=== PATIENT | female | born 1940 | race American Indian/Alaskan Native ===

== ENCOUNTER 2018-11-21 19:56 | Emergency (ER) | payer MEDICARE ==
--- NOTE | 2018-11-22 00:50 | Emergency Department Report ---
ED ENT HPI - General Chief complaint: Dental/Oral Stated complaint: MOUTH/EAR PAIN Time Seen by Provider: 11/22/18 00:35 Source: patient Mode of arrival: Ambulatory Limitations: No Limitations - History of Present Illness Initial comments: Pt presents to the ED with c/o left lower dental pain that began 3 days ago. She states she has not seen a dentist in about 12 years. The patient states she has several cavities and teeth extractions. She denies any fever. She does have pain with chewing food. The patient has a hx of HTN and states she did not take her losartan tonight. - Related Data Previous Rx's Medication Instructions Recorded Last Taken Type Acetaminophen/Codeine [Tylenol 1 tab PO BID PRN #10 tablet 11/22/18 Unknown Rx /Codeine # 3 tab] metroNIDAZOLE [Flagyl] 500 mg PO BID 7 Days #14 tab 11/22/18 Unknown Rx Allergies Allergy/AdvReac Type Severity Reaction Status Date / Time amoxicillin Allergy Rash Verified 11/21/18 20:02 Sulfa (Sulfonamide Allergy Hives Verified 11/03/15 15:32 Antibiotics) ED Dental HPI - General Chief complaint: Dental/Oral Stated complaint: MOUTH/EAR PAIN Time Seen by Provider: 11/22/18 00:35 Source: patient Mode of arrival: Ambulatory Limitations: No Limitations - Related Data Previous Rx's Medication Instructions Recorded Last Taken Type Acetaminophen/Codeine [Tylenol 1 tab PO BID PRN #10 tablet 11/22/18 Unknown Rx /Codeine # 3 tab] metroNIDAZOLE [Flagyl] 500 mg PO BID 7 Days #14 tab 11/22/18 Unknown Rx Allergies Allergy/AdvReac Type Severity Reaction Status Date / Time amoxicillin Allergy Rash Verified 11/21/18 20:02 Sulfa (Sulfonamide Allergy Hives Verified 11/03/15 15:32 Antibiotics) ED Review of Systems ROS: Stated complaint: MOUTH/EAR PAIN Other details as noted in HPI Comment: All other systems reviewed and negative ED Past Medical Hx - Past Medical History Previous Medical History?: Yes Hx Hypertension: Yes - Surgical History Past Surgical History?: Yes Hx Cholecystectomy: Yes Additional Surgical History: hysterectomy - Social History Smoking Status: Never Smoker Substance Use Type: None - Medications Home Medications: Home Medications Medication Instructions Recorded Confirmed Last Taken Type Acetaminophen/Codeine [Tylenol 1 tab PO BID PRN #10 tablet 11/22/18 Unknown Rx /Codeine # 3 tab] metroNIDAZOLE [Flagyl] 500 mg PO BID 7 Days #14 tab 11/22/18 Unknown Rx ED Physical Exam - General Limitations: No Limitations General appearance: alert, in no apparent distress - Head Head exam: Present: atraumatic, normocephalic - Eye Eye exam: Present: normal appearance - ENT ENT exam: Present: mucous membranes moist, other (several dental caries throughout, a few teeth missing, no obvious abscess, very small amount of left sided facial swelling, face is not warm to touch) - Respiratory Respiratory exam: Present: normal lung sounds bilaterally. Absent: respiratory distress, wheezes, rales, rhonchi, stridor, chest wall tenderness, accessory muscle use, decreased breath sounds, prolonged expiratory - Cardiovascular Cardiovascular Exam: Present: regular rate, normal rhythm, systolic murmur. Absent: rubs, gallop (3/6 systolic murmur) ED Course Vital Signs 11/21/18 11/22/18 20:31 01:12 Temperature 98.2 F Pulse Rate 83 79 Respiratory 16 17 Rate Blood Pressure 183/79 179/93 [Right] O2 Sat by Pulse 96 96 Oximetry ED Medical Decision Making - Lab Data Vital Signs 11/21/18 11/22/18 20:31 01:12 Temperature 98.2 F Pulse Rate 83 79 Respiratory 16 17 Rate Blood Pressure 183/79 179/93 [Right] O2 Sat by Pulse 96 96 Oximetry - Medical Decision Making Pt is a 78 yo female who presents to the ED with c/o left lower dental pain that began 3 days ago. No obvious abscess on examination. very small amount of left sided facial swelling. pt has not seen a dentist in 12 years. she has several dental caries and teeth missing. Will place pt on antibiotics and give her something for the pain. Advised to see a dentist TOSHIA, pt given list of resources/dental clincs. Also advised pt to take her losartan due to elevated BP, also advised pt to see her PCP in 2 days for BP recheck and further management. BP slightly improved on recheck in the ED. Return to the ED for any new or worsening symptoms. - Differential Diagnosis Dental caries, Dental infection, Dental abscess Critical care attestation.: If time is entered above; I have spent that time in minutes in the direct care of this critically ill patient, excluding procedure time. ED Disposition Clinical Impression: Dental caries, Pain due to dental caries Disposition: DC-01 TO HOME OR SELFCARE Is pt being admited?: No Does the pt Need Aspirin: No Condition: Stable Instructions: Dental Caries (ED) Additional Instructions: Follow up with a dentist TOSHIA. Take all medication as prescribed. Follow up with your primary care doctor in the next 2-3 days for a blood pressure recheck. Return to the emergency room for any new or worsening symptoms. Prescriptions: metroNIDAZOLE [Flagyl] 500 mg PO BID 7 Days #14 tab Acetaminophen/Codeine [Tylenol /Codeine # 3 tab] 1 tab PO BID PRN #10 tablet PRN Reason: Pain, Moderate (4-6) Referrals: JAYDEN [facility]LY [facility] MD MICHELLE [Referring] - 2-3 Days Time of Disposition: 00:51 Print Language: FRISIAN
[2018-11-22 04:19] VITALS: BP 179/93
== END 2018-11-22 01:12 | disposition home or self-care (01) ==
LOC: ED 19:56
DX: K02.9 Dental caries, unspecified (principal); I10 Essential (primary) hypertension; Z90.49 Acquired absence of other specified parts of digestive tract; Z88.1 Allergy status to other antibiotic agents; Z88.2 Allergy status to sulfonamides
CPT/HCPCS: 99282

== ENCOUNTER 2019-08-10 01:07 | Emergency (ER) | payer MEDICARE ==
[2019-08-10 01:11] VITALS: BP 170/82
[2019-08-10] MEDS ORDERED: diphenhydrAMINE 25 MG CAP PO ONE ×2 (01:23→01:32)
[2019-08-10] MEDS ORDERED: dexAMETHasone 20 MG/5 ML VIAL ONE (01:24)
[2019-08-10] MEDS ORDERED: FAMOTIDINE 20 MG TAB ONE (01:24)
[2019-08-10] MEDS ORDERED: FAMOTIDINE 20 MG TAB PO ONE (01:32)
[2019-08-10] MEDS ORDERED: dexAMETHasone 20 MG/5 ML VIAL IM ONE (01:33)
--- NOTE | 2019-08-10 02:12 | Emergency Department Report ---
HPI - General Chief Complaint: Skin Rash Time Seen by Provider: 08/10/19 01:55 - HPI HPI: Room 25 The patient is a 78-year-old female presenting with a chief complaint of rash. Patient states 3 days ago she developed a diffuse rash has been pruritic. Patient states the rashes on both arms bilateral lower extremities and between her breasts. Patient states she does not recall taking any new medications, detergents or foods. No one else in the home has the same symptoms. Location: [See above] Duration: [See above] Quality: [See above] Severity: [See above] Timing: [See above] Context: [See above] Modifying factors: [See above] Associated signs and symptoms: [see above] ED Past Medical Hx - Past Medical History Previous Medical History?: Yes Hx Hypertension: Yes - Surgical History Past Surgical History?: Yes Hx Cholecystectomy: Yes Additional Surgical History: hysterectomy - Family History Family history: no significant - Social History Smoking Status: Never Smoker Substance Use Type: None - Medications Home Medications: Home Medications Medication Instructions Recorded Confirmed Last Taken Type Acetaminophen/Codeine [Tylenol 1 tab PO BID PRN #10 tablet 11/22/18 Unknown Rx /Codeine # 3 tab] metroNIDAZOLE [Flagyl] 500 mg PO BID 7 Days #14 tab 11/22/18 Unknown Rx Famotidine [Pepcid] 20 mg PO BID #6 tablet 08/10/19 Unknown Rx Prednisone [predniSONE 10 mg 10 mg PO .TAPER #1 tab.ds.pk 08/10/19 Unknown Rx (6-Day Pack, 21 Tabs)] diphenhydrAMINE [Benadryl CAP] 50 mg PO Q6HR #24 capsule 08/10/19 Unknown Rx ED Review of Systems ROS: Stated complaint: ITCHY, RED BUMPS, BLOTCHES Other details as noted in HPI Constitutional: no symptoms reported Eyes: denies: eye pain ENT: denies: throat pain Respiratory: denies: no symptoms reported Cardiovascular: denies: chest pain Endocrine: no symptoms reported Gastrointestinal: denies: abdominal pain Genitourinary: denies: dysuria Musculoskeletal: denies: back pain Skin: rash, pruritus Physical Exam - Physical Exam Vital Signs: Vital Signs 08/10/19 01:10 Temperature 98.3 F Pulse Rate 83 Respiratory 12 Rate Blood Pressure 170/82 O2 Sat by Pulse 93 Oximetry Physical Exam: GENERAL: The patient is well-developed well-nourished female lying on stretcher not appearing to be in acute distress. [] HEENT: Normocephalic. Atraumatic. Extraocular motions are intact. Patient has moist mucous membranes. NECK: Supple. Trachea midline CHEST/LUNGS: Clear to auscultation. There is no respiratory distress noted. HEART/CARDIOVASCULAR: Regular. There is no tachycardia. There is no gallop rub or murmur. ABDOMEN: Abdomen is soft, nontender. Patient has normal bowel sounds. There is no abdominal distention. SKIN: There is a diffuse urticarial rash present over the knee arms legs and trunk. There is no edema. There is no diaphoresis. NEURO: The patient is awake, alert, and oriented. The patient is cooperative. The patient has normal speech MUSCULOSKELETAL: There is no evidence of acute injury. ED Course Vital Signs 08/10/19 01:10 Temperature 98.3 F Pulse Rate 83 Respiratory 12 Rate Blood Pressure 170/82 O2 Sat by Pulse 93 Oximetry ED Medical Decision Making - Lab Data Result diagrams: 08/10/19 02:23 08/10/19 02:23 Laboratory Tests 08/10/19 08/10/19 08/10/19 02:23 02:23 02:23 WBC 8.3 RBC 4.94 Hgb 14.2 Hct 43.1 H MCV 87 MCH 29 MCHC 33 RDW 13.8 Plt Count 391 Lymph % (Auto) 22.1 [place] % (Auto) 12.1 H Eos % (Auto) 5.5 H Baso % (Auto) 0.5 Lymph # 1.8 [place] # 1.0 H Eos # 0.5 H Baso # 0.0 Seg Neutrophils % 59.8 Seg Neutrophils # 5.0 PT 12.8 INR 0.97 APTT 27.7 Sodium 139 Potassium 3.9 Chloride 102.0 Carbon Dioxide 29 Anion Gap 12 BUN 18 H Creatinine 0.6 L Estimated GFR > 60 BUN/Creatinine Ratio 30 Glucose 124 H Calcium 9.8 - Differential Diagnosis allergic reaction, thrombocytopenia Critical care attestation.: If time is entered above; I have spent that time in minutes in the direct care of this critically ill patient, excluding procedure time. ED Disposition Clinical Impression: Acute allergic reaction Disposition: DC-01 TO HOME OR SELFCARE Is pt being admited?: No Does the pt Need Aspirin: No Condition: Stable Instructions: Urticaria (ED) Additional Instructions: Return to the emergency department should you develop worsening symptoms, inability to tolerate food or liquids, high fever or any other concerns Prescriptions: diphenhydrAMINE [Benadryl CAP] 50 mg PO Q6HR #24 capsule Famotidine [Pepcid] 20 mg PO BID #6 tablet Prednisone [predniSONE 10 mg (6-Day Pack, 21 Tabs)] 10 mg PO .TAPER #1 tab.ds.pk Referrals: CARLOS LIVE MD [Staff Physician] - 3-5 Days (Dr Live is an community health nursing director. Please follow up with her for further evaluation) JESSICA MCKEON MD [Staff Physician] - 3-5 Days (Dr Mckeon is a medical technologist hematology. Please follow up with him for further evaluation) Time of Disposition: 04:05
[2019-08-10 02:51] LABS: Basophils % (Auto) 0.5 % (0.0-1.8); Eosinophils # (Auto) 0.5 K/mm3 (0.0-0.4); Eosinophils % (Auto) 5.5 % (0.0-4.3); Hematocrit 43.1 % (30.3-42.9); Hemoglobin 14.2 gm/dl (10.1-14.3); Lymphocytes # (Auto) 1.8 K/mm3 (1.2-5.4); Lymphocytes % (Auto) 22.1 % (13.4-35.0); Mean Corpuscular HGB Conc 33 % (30-34); Mean Corpuscular Volume 87 fl (79-97); Monocytes % (Auto) 12.1 % (0.0-7.3); Platelet Count 391 K/mm3 (140-440); Red Blood Count 4.94 M/mm3 (3.65-5.03); Red Cell Distribution Width 13.8 % (13.2-15.2)
[2019-08-10 03:12] LABS: INR 0.97 (0.87-1.13)
[2019-08-10 03:13] LABS: Partial Thromboplastin Time 27.7 Sec. (24.2-36.6)
[2019-08-10 04:03] LABS: BUN/Creatinine Ratio 30; Blood Urea Nitrogen 18 mg/dL (7-17); Calcium 9.8 mg/dL (8.4-10.2); Hemolysis Index 3
== END 2019-08-10 04:35 | disposition home or self-care (01) ==
LOC: ED 01:07
DX: T78.40XA Allergy, unspecified, initial encounter (principal); I10 Essential (primary) hypertension; Z87.891 Personal history of nicotine dependence; Y92.89 Other specified places as the place of occurrence of the external cause
CPT/HCPCS: 36415; 80048; 85025; 85610; 85730; 96372; 99283; J1100